=== PATIENT | female | born 1950 | race Caucasian/White ===

== ENCOUNTER 2022-03-20 15:11 | Emergency (ER) | payer MEDICARE, MEDICAID, SELFPAY ==
[2022-03-20 15:12] VITALS: BP 175/82; PULSE 67; RESP 16; TEMP 37; O2SAT 98; BMI 23.2
--- NOTE | 2022-03-20 15:28 | PC.NURSE ---
call light within reach, pt states no need at this time.
[2022-03-20 15:35] LABS: Basophils # 0.1 K/mm3 (0-0.2); Basophils % 1.1 % (0.1-2.0); Eosinophils # 0.4 K/mm3 (0.0-0.4); Eosinophils % 3.8 % (0.1-12.0); Hemoglobin 13.5 g/dL (12.2-16.2); Lymphocytes # 4.9 K/mm3 (0.7-4.5); Lymphocytes % 45.1 % (10-50); Mean Corpuscular HGB Conc 30.7 g/dL (31.8-35.4); Mean Corpuscular Hemoglobin 30.5 pg (27.0-31.2); Mean Corpuscular Volume 99.5 fl (81-99); Mean Platelet Volume 7.9 fl (7.4-10.4); Monocytes # 0.6 K/mm3 (0.1-1.0); Monocytes % 5.7 % (1.7-9.3); Neutrophils # 4.7 K/mm3 (1.8-7.8); Neutrophils % 44.1 % (37.0-80.0); Platelet Count 285 K/mm3 (142-424); Red Blood Count 4.42 M/mm3 (4.20-5.40); Red Cell Distribution Width 12.7 % (11.5-17.5); White Blood Count 10.8 K/mm3 (4.8-10.8)
--- NOTE | 2022-03-20 15:35 | ECG_ITS ---
APPROVED REPORT Exam: Resting ECG HR:67 bpm ECG Measurements Heart Rate 67 AXES ID 166 P 71 QRSd 89 QRS 71 QT 433 T 65 QTc 449 Conclusion SINUS RHYTHM POSSIBLE LEFT ATRIAL ENLARGEMENT [-0.1mV P-WAVE IN V1/V2] POSSIBLE LEFT VENTRICULAR HYPERTROPHY [VOLTAGE CRITERIA PLUS LAE OR QRS WIDENING] MODERATE T-WAVE ABNORMALITY, CONSIDER INFERIOR ISCHEMIA [-0.1+ mV T-WAVE IN II/aVF] ABNORMAL ECG UNCONFIRMED REPORT Electronically signed by : Rajat See MD 03/22/2022 15:27:05
[2022-03-20 15:38] LABS: Chloride 106 mmol/L (98-107); Potassium 3.6 mmoL/L (3.5-5.1); Sodium 141 mmol/L (136-145)
[2022-03-20 15:41] LABS: Alanine Aminotransferase 14 U/L (12-78); Albumin Level 4.1 g/dl (3.5-5.0); Albumin/Globulin Ratio 1.4 (1.1-1.8); Alkaline Phosphatase 74 U/L (38-126); Anion Gap 8.6 mEq/L (5-15); Aspartate Amino Transferase 32 U/L (14-36); Bilirubin,Total 0.2 mg/dl (0.2-1.3); Blood Urea Nitrogen 14 mg/dl (7-17); Carbon Dioxide 30 mmol/L (22.0-30.0); Creatinine Clearance Estimated 48 mL/min (50-200); Estimated Glomerular Filt Rate 62 ml/min (>60); GFR (African American) 75 ML/MIN (>60); Total Protein,Serum 7.1 g/dl (6.3-8.2)
[2022-03-20 15:42] LABS: Calcium 8.5 mg/dl (8.4-10.2); Glucose 90 mg/dl (74-100)
[2022-03-20 15:47] VITALS: BP 154/84; PULSE 80; RESP 16; O2SAT 98
[2022-03-20 15:55] LABS: Troponin I < 0.01 ng/ml (0.00-0.034)
[2022-03-20 16:01] VITALS: BP 201/89; PULSE 80; RESP 18; O2SAT 96
[2022-03-20 16:30] VITALS: BP 194/89; PULSE 74; RESP 18; O2SAT 95
[2022-03-20 17:30] VITALS: BP 123/74; PULSE 78; RESP 16; TEMP 36.6; O2SAT 98
--- NOTE | 2022-03-20 20:52 | HMH.EDGENADL ---
Discharge Plan Disposition Patient Disposition: Home Health Service Condition: Good Referrals Follow up/Referrals: Myesha Huang [Primary Care Provider] - See instructions Activity Restrictions/Add. Instructions Additional Instructions/Restrictions: Your labs and EKG looked good. Return if you have any other concerns. Clinical Impressions Clinical Impression: Vasovagal syncope Instructions Patient Instructions: DI for Syncope in Adults (Fainting) Discharge ED Provider: Mallory Rubio General Adult HPI General Chief complaint: Syncope Stated complaint: syncope Time Seen by Provider: 03/20/22 15:14 Mode of Arrival: EMS Source of Information: Patient Limitations: No Limitations Description of Symptoms (Recalled from ER Triage Doc. by RN): to ed per squad with c/o syncopal episode. pt states working in basement and passed out pt denies any c/o prior to episode. pt denies any c/o at present. pt states I feel fine accucheck 88 History of Present Illness HPI narrative: The patient is a 71-year-old female with no past medical history who presents after a syncopal episode. The patient states she had been working clearing out a basement and passed out. She did not hit her head. She did not have any chest pain or shortness of breath. She said she felt very lightheaded before she passed out. At the time patient has no complaints, she states she did not want to come to the ER but was forced. Related Data Allergies Allergy/AdvReac Type Severity Reaction Status Date / Time No Known Allergies Allergy Verified 03/20/22 15:30 PFSH PFS Social History Smoking Status: Never smoker alcohol intake: never current occupational status: unemployed Travel in the last 8 weeks: None ROS Obtained: Yes Systems reviewed as appropriate & no additional complaints except as documented Physical Exam General General appearance: alert and in no apparent distress Head Head exam: atraumatic and normocephalic Eye Eye exam: Present normal appearance, PERRL and EOMI ENT ENT exam: Present normal exam and normal oropharynx Neck Neck exam: Present normal inspection and full ROM Chest Chest inspection: Present normal inspection and symmetric chest wall rise Respiratory Respiratory exam: Present normal lung sounds bilaterally; Absent respiratory distress Cardiovascular Cardiovascular exam: Present regular rate and normal rhythm Abdominal Exam Abdominal exam: Present soft; Absent distention or tenderness Extremities Exam Extremities exam: Present normal inspection and full ROM Back Exam Back exam: Present normal inspection Neurological Exam Neurological exam: Present alert, oriented X3 and CN II-XII intact Skin Skin exam: Present warm and dry Medical Decision Making Mike Inquiry Pt receiving controlled substance: No Vital Signs: 03/20/22 15:12 03/20/22 15:47 03/20/22 16:01 Temperature 98.6 F Temperature Source Oral Pulse Rate 80 80 Pulse Rate [Radial] 67 Respiratory Rate 16 16 18 Blood Pressure 154/84 H 201/89 H Blood Pressure [Right Arm] 175/82 H Blood Pressure Mean 135 126 Blood Pressure Mean [Right Arm] 113 Blood Pressure Position Blood Pressure Position [Right Arm] Sitting 02 Sat by Pulse Oximetry 98 98 96 Oxygen Delivery Method Room Air Room Air 03/20/22 16:30 03/20/22 17:30 Temperature 98 F Temperature Source Oral Pulse Rate 74 78 Pulse Rate [Radial] Respiratory Rate 18 16 Blood Pressure 194/89 H 123/74 Blood Pressure [Right Arm] Blood Pressure Mean 130 Blood Pressure Mean [Right Arm] Blood Pressure Position Sitting Blood Pressure Position [Right Arm] 02 Sat by Pulse Oximetry 95 Oxygen Delivery Method Room Air Lab Data Lab Results 03/20/22 15:18: WBC 10.8, RBC 4.42, Hgb 13.5, Hct 44.0, MCV 99.5 H, MCH 30.5, MCHC 30.7 L, RDW 12.7, Plt Count 285, MPV 7.9, Neut % (Auto) 44.1, Lymph % (Auto) 45.1, Castro % (
== END 2022-03-20 17:32 | disposition home health service (06) ==
PROVIDERS: Emergency Provider Emergency Medicine; PCP Nurse Practitioner Family
DX: R55 Syncope and collapse (principal)
CPT/HCPCS: 80053; 84484; 85025; 93005; 96360; 99284